=== PATIENT | female | born 1950 ===

== ENCOUNTER 2019-10-11 08:42 | Outpatient (CLI) | payer OTHER ==
--- NOTE | 2019-10-11 10:29 | ULT ---
TRANSABDOMINAL AND TRANSVAGINAL PELVIC ULTRASOUND WITH ZHENG SCALE AND COLOR FLOW AND SPECTRAL DOPPLER IMAGING: Date: 10/11/2019 HISTORY: Postmenopausal bleeding. FINDINGS: The uterus measures 8.3 x 5.0 x 4.0 cm with a 1.5 cm mass consistent with fibroid. The endometrium me asures 11.0 mm in thickness. The right ovary measures 1.7 x 1.6 x 0.7 cm. The left ovary measures 2.0 x 1.2 x 1.9 cm. Flow is demo nstrated to both ovaries. No adnexal mass or free fluid in the cul-de-sac seen. IMPRESSION: 1. Uterine fibroid. 2. Endometrial thickness is 11.0 mm. POS: [facility]
== END 2019-10-11 08:43 | disposition home or self-care (01) ==
LOC: NAV ULT 08:42
PROVIDERS: ATTEND Internal Medicine
DX: N95.0 Postmenopausal bleeding (principal); D25.9 Leiomyoma of uterus, unspecified; R93.89 Abnormal findings on diagnostic imaging of other specified body structures
CPT/HCPCS: 76856